=== PATIENT | female | born 2000 | race American Indian/Alaskan Native ===

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

== ENCOUNTER 2022-03-13 11:56 | Emergency (ER) | payer SELFPAY ==
[2022-03-13 12:14] VITALS: BP 137/79
== END 2022-03-14 20:33 | disposition left against medical advice (07) ==
LOC: ED 11:56
DX: J00 Acute nasopharyngitis [common cold] (principal); R09.89 Other specified symptoms and signs involving the circulatory and respiratory systems; R19.7 Diarrhea, unspecified; Z53.21 Procedure and treatment not carried out due to patient leaving prior to being seen by health care provider